=== PATIENT | male | born 1975 | race Caucasian/White ===

== ENCOUNTER 2016-12-19 20:51 | Emergency (ER) | payer SELFPAY ==
[2016-12-19 21:00] VITALS: BP 156/95
[2016-12-19] MEDS ORDERED: LIDOCAINE 2% VISCOUS SOLN 20 ML UDCUP PO ONE (21:26)
--- NOTE | 2016-12-19 21:27 | ER Document Report ---
HPI - HPI Pain Level: 5 Notes: Patient is a 41-year-old male who presents to the ED complaining of left lower dental pain to #18 2-3 days. Patient states that he has not noticed any abscess or discharge to the area. Patient states that that tooth is fractured and bothers him from time to time. Patient has been using [id number] meds with minimal relief. The pain does not radiate. Patient is still able to eat and drink without any difficulties. Patient has a drug allergy to sulfa, but denies any other significant past medical history. Patient denies any smoking or illicit drug use. Denies any headache, fever, neck pain/stiffness, URI, sore throat, drooling, hoarseness, chest pain, palpitations, syncope, cough , shortness of breath, wheeze, dyspnea, abdominal pain, nausea/vomiting/diarrhea , or rash. - ROS Notes: REVIEW OF SYSTEMS: CONSTITUTIONAL : Denies fever, chills, or sweats. Denies recent illness. EENT: see hpi. CARDIOVASCULAR: Denies chest pain. Denies palpitations or racing or irregular heart beat. Denies ankle edema. RESPIRATORY: Denies cough, cold, or chest congestion. Denies shortness of breath, difficulty breathing, or wheezing. GASTROINTESTINAL: Denies abdominal pain or distention. Denies nausea, vomiting , or diarrhea. Denies blood in vomitus, stools, or per rectum. Denies black, tarry stools. Denies constipation. GENITOURINARY: Denies difficulty urinating, painful urination, burning, frequency, blood in urine, or discharge. MUSCULOSKELETAL: Denies back or neck pain or stiffness. Denies joint pain or swelling. SKIN: Denies rash, lesions or sores. NEUROLOGICAL: Denies confusion or altered mental status. Denies passing out or loss of consciousness. Denies dizziness or lightheadedness. Denies headache. Denies weakness or paralysis or loss of use of either side. Denies problems with gait or speech. Denies sensory loss, numbness, or tingling. ALL OTHER SYSTEMS REVIEWED AND NEGATIVE. Dictation was performed using [employer] voice recognition software - REPRODUCTIVE Reproductive: DENIES: : - DERM Skin Color: Normal Past Medical History - Social History Smoking Status: Never Smoker Family History: None Patient has suicidal ideation: No Patient has homicidal ideation: No Renal/ Medical History: Denies: Hx Peritoneal Dialysis Musculoskeltal Medical History: Reports Hx Musculoskeletal Deformity, Reports Hx Musculoskeletal Trauma Skin Medical History: Reports Hx MRSA Infectious Medical History: Reports: Hx MRSA Past Surgical History: Reports: Hx Orthopedic Surgery - cervical fusion x 3,, Hx Tonsillectomy - Immunizations Hx Diphtheria, Pertussis, Tetanus Vaccination: Yes Vertical Provider Document - CONSTITUTIONAL Agree With Documented VS: Yes Notes: PHYSICAL EXAMINATION: GENERAL: Well-appearing, well-nourished and in no acute distress. HEAD: Atraumatic, normocephalic. EYES: Pupils equal round and reactive to light, extraocular movements intact, sclera anicteric, conjunctiva are normal. ENT: EAC clear b/l. TM's intact b/l without erythema, fluid, or perforation. Nares patent and without discharge. oropharynx clear without exudates. No tonsilar hypertrophy or erythema. Moist mucous membranes. No sinus tenderness. Uvula midline. No palatine shift. No tongue protrusion. No respiratory compromise. No facial swelling. Mouth: Poor dentition. + decay and mild gingivitis to #18. Multiple missing teeth noted. No obvious abscess or discharge noted. No facial swelling. + tenderness to tooth #18. NECK: Normal range of motion, supple without lymphadenopathy. No rigidity/ meningismus. LUNGS: Breath sounds clear to auscultation bilaterally and equal. No wheezes rales or rhonchi. HEART: Regular rate and rhythm without murmurs, rubs, gallops. NEUROLOGICAL: Cranial nerves grossly intact. Normal speech, normal gait. Normal sensory, motor exams PSYCH: Normal mood, normal affect. SKIN: Warm, Dry, normal turgor, no rashes or lesions noted. - INFECTION CONTROL TRAVEL OUTSIDE OF THE [place] IN LAST 30 DAYS: No - RESPIRATORY O2 Sat by Pulse Oximetry: 98 Course - Re-evaluation Re-evalutation: 12/19/16 21:39 Patient is an afebrile, well-hydrated, 41-year-old male who presents the ED complaining of a #18, nerve root etiology versus possible mild infection. Vitals are stable. PE otherwise unremarkable at this time. Offered patient a dental block who agreed, but then declined when the procedure was about to begin. I will send him home with viscous lidocaine and a syringe that he may utilize in small amounts to the tooth for pain as needed. I will also send him home with a prescription for penicillin to take as directed. Low suspicion for any meningitis, sepsis, peritonsillar/pharyngeal abscess, respiratory compromise , Nigel's, temporal arteritis, or other emergent systemic condition at this time. Patient is aware this condition can change from initial presentation and he needs to monitor symptoms closely. Conservative measures otherwise for symptoms. Call to schedule an appointment with a dentist for further evaluation and management. Recheck with your PCM this week as well. Return to the ED with any worsening/concerning symptoms otherwise as reviewed in discharge. Patient is in agreement. - Vital Signs Vital signs: Temp Pulse Resp BP Pulse Ox 98.1 F 78 18 156/95 H 98 12/19/16 20:58 12/19/16 20:58 12/19/16 20:58 12/19/16 20:58 12/19/16 20:58 Discharge - Discharge Clinical Impression: Toothache Condition: Stable Disposition: HOME, SELF-CARE Instructions: [facility], Dentist, Penicillin V K ([facility]), Toothache ([facility]) Additional Instructions: Shirley and floss twice daily Maintain fluid intake Take antibiotics as directed Mouthwash, salt water gargles, peroxide rinse as needed Tylenol/ibuprofen as needed Recheck with PCM this week Call today/tomorrow and schedule an appointment with your dentist for further evaluation Return to the ED with any worsening symptoms and/or development of fever, headache, facial swelling, swelling of lips/tongue/throat, trouble swallowing, drooling, hoarseness, neck pain/stiffness, chest pain, palpitations, syncope, shortness of breath, trouble breathing, abdominal pain, n/v/d, numbness/tingling , or other worsening symptoms that are concerning to you. Prescriptions: Penicillin V Potassium [Penicillin Vk 500 mg Tablet] 500 mg PO BID #20 tablet Forms: Elevated Blood Pressure Referrals: [facility] [Provider Group] - Follow up as needed
== END 2016-12-19 21:42 | disposition home or self-care (01) ==
LOC: ER 20:51
DX: K08.89 Other specified disorders of teeth and supporting structures (principal)
CPT/HCPCS: 99282

== ENCOUNTER 2017-01-02 19:19 | Emergency (ER) | payer OTHER ==
[2017-01-02] MEDS ORDERED: ONDANSETRON HCL INJ/PF 4 MG/2 ML SDV IV ONE (19:54)
[2017-01-02] MEDS ORDERED: NORMAL SALINE 1000 ML 1,000 ML IV ONE (19:54)
[2017-01-02] MEDS ORDERED: KETOROLAC TROMETHAMINE INJ/PF 30 MG/1 ML SDV IV ONE (19:54)
--- NOTE | 2017-01-02 19:56 | ER Document Report ---
ED Medical Screen (RME) - General Chief Complaint: Urinary Problem Stated Complaint: ABDOMINAL PAIN Time Seen by Provider: 01/02/17 19:53 Mode of Arrival: Wheelchair Information source: Patient, Friend TRAVEL OUTSIDE OF THE [place] IN LAST 30 DAYS: No - HPI Patient complains to provider of: L flank pain Onset: This morning - pt with h/o kidney stones with onset of L flank pain earlier today with vomiting times 2 - Related Data Allergies/Adverse Reactions: Sulfa (Sulfonamide Antibiotics) Allergy (Verified 12/19/16 20:57) Past Medical History - Social History Chew tobacco use (# tins/day): No Frequency of alcohol use: None Drug Abuse: None Renal/ Medical History: Denies: Hx Peritoneal Dialysis Musculoskeltal Medical History: Reports Hx Musculoskeletal Deformity, Reports Hx Musculoskeletal Trauma Skin Medical History: Reports Hx MRSA Infectious Medical History: Reports: Hx MRSA Past Surgical History: Reports: Hx Orthopedic Surgery - cervical fusion x 3,, Hx Tonsillectomy - Immunizations Hx Diphtheria, Pertussis, Tetanus Vaccination: Yes Physical Exam - Vital signs Vitals: Temp Pulse BP Pulse Ox 97.9 F 104 H 145/100 H 89 L 01/02/17 19:39 01/02/17 19:39 01/02/17 19:39 01/02/17 19:39 Course - Vital Signs Vital signs: Temp Pulse Resp BP Pulse Ox 97.9 F 104 H 145/100 H 89 L 01/02/17 19:39 01/02/17 19:39 01/02/17 19:39 01/02/17 19:39
[2017-01-02 20:22] LABS: APPEARANCE,URINE SLIGHTLY-CLOUDY; BILIRUBIN,URINE NEGATIVE (NEGATIVE); GLUCOSE, URINE NEGATIVE (NEGATIVE); KETONES,URINE NEGATIVE (NEGATIVE); LEUKOCYTE ESTERASE,URINE NEGATIVE (NEGATIVE); NITRITE,URINE NEGATIVE (NEGATIVE); PROTEIN,URINE 30 mg/dL (NEGATIVE); URINE SPECIFIC GRAVITY 1.016; UROBILINOGEN,URINE NEGATIVE mg/dL (<2.0)
--- NOTE | 2017-01-02 20:50 | RADIOLOGY REPORT (SQ) ---
EXAM DESCRIPTION: CT LTD RENAL STONE PROTOCOL ON COMPLETED DATE/TIME: 01/02/2017 8:38 pm REASON FOR STUDY: L flank pain COMPARISON: None. TECHNIQUE: CT scan of the abdomen and pelvis performed without intravenous or oral contrast. Images reviewed with lung, soft tissue, and bone windows. Reconstructed coronal and sagittal MPR images revi ewed. All images stored on PACS. All CT scanners at this facility use dose modulation, iterative reconstruction, and/or weight based d osing when appropriate to reduce radiation dose to as low as reasonably achievable (ALARA). [facility]: Dose Right [facility]: CareDose [facility]: Dose Right [facility]: Teradose 4D [facility]: Smart [employer] RADIATION DOSE: Up-to-date CT equipment and radiation dose reduction techniques were employed. CTDIv ol: 7.5 mGy. DLP: 414 mGy-cm.mGy. LIMITATIONS: None. FINDINGS: LOWER CHEST: No significant findings. No nodules or infiltrates. NON-CONTRASTED LIVER, SPLEEN, ADRENALS: Evaluation limited by lack of IV contrast. No identified sign ificant masses. PANCREAS: No masses. No peripancreatic inflammatory changes. GALLBLADDER: No identified stones by CT criteria. No inflammatory changes to suggest cholecystitis. RIGHT KIDNEY AND URETER: No suspicious masses. Assessment limited by lack of IV contrast. No signif icant calcifications. No hydronephrosis or hydroureter. LEFT KIDNEY AND URETER: No suspicious masses. Assessment limited by lack of IV contrast. No signifi cant calcifications. No hydronephrosis or hydroureter. AORTA AND RETROPERITONEUM: No aneurysm. No retroperitoneal masses or adenopathy. BOWEL AND PERITONEAL CAVITY: No obvious masses or inflammatory changes. No free fluid. APPENDIX: Normal. PELVIS, BLADDER, AND ABDOMINAL WALL:There is an umbilical hernia containing omental fat only. BONES: No significant findings. OTHER: No other significant finding. IMPRESSION: NO SIGNIFICANT OR ACUTE PROCESS IN THE ABDOMEN OR PELVIS. COMMENT: Quality ID # [id number]: Final reports with documentation of one or more dose reduction techniques (e.g., Automated exposure control, adjustment of the mA and/or kV according to patient size, use of iterative reconstruction technique) TECHNICAL DOCUMENTATION: JOB ID: [id number]- All Rights Reserved
[2017-01-02] MEDS ORDERED: MORPHINE SULFATE 10 MG/ML INJ IV ONE ×2 (21:30→21:55)
--- NOTE | 2017-01-02 22:06 | ER Document Report ---
ED General - General Chief Complaint: Urinary Problem Stated Complaint: ABDOMINAL PAIN Time Seen by Provider: 01/02/17 19:53 Mode of Arrival: Wheelchair Notes: Patient is a 41-year-old male with a past medical history of prior kidney stones who presents with 4 hours of a dull, constant, aching pain to the left flank that radiates into the left lower abdomen and left testicle. He states this is a severe pain similar to when he had kidney stones in the past. Nothing improves or worsens the pain. He notes associated nausea, vomiting and hematuria. No chest pain or shortness of breath. He has not seen his primary doctor regarding this concern. He came directly to the emergency department due to the severity of the pain. TRAVEL OUTSIDE OF THE [place] IN LAST 30 DAYS: No - Related Data Allergies/Adverse Reactions: Sulfa (Sulfonamide Antibiotics) Allergy (Verified 12/19/16 20:57) Past Medical History - General Information source: Patient, Friend - Social History Smoking Status: Never Smoker Chew tobacco use (# tins/day): No Frequency of alcohol use: None Drug Abuse: None Lives with: Spouse/Significant other Family History: Reviewed & Not Pertinent Patient has suicidal ideation: No Patient has homicidal ideation: No Renal/ Medical History: Denies: Hx Peritoneal Dialysis Musculoskeltal Medical History: Reports Hx Musculoskeletal Deformity, Reports Hx Musculoskeletal Trauma Skin Medical History: Reports Hx MRSA Infectious Medical History: Reports: Hx MRSA Past Surgical History: Reports: Hx Orthopedic Surgery - cervical fusion x 3,, Hx Tonsillectomy - Immunizations Hx Diphtheria, Pertussis, Tetanus Vaccination: Yes Review of Systems - Review of Systems Notes: Constitutional: Negative for fever. HENT: Negative for sore throat. Eyes: Negative for visual changes. Cardiovascular: Negative for chest pain. Respiratory: Negative for shortness of breath. Gastrointestinal: Positive for flank pain and vomiting Genitourinary: Positive for hematuria Musculoskeletal: Negative for back pain. Skin: Negative for rash. Neurological: Negative for headaches, weakness or numbness. 10 point ROS negative except as marked above and in HPI. Physical Exam - Vital signs Vitals: Temp Pulse BP Pulse Ox 97.9 F 104 H 145/100 H 89 L 01/02/17 19:39 01/02/17 19:39 01/02/17 19:39 01/02/17 19:39 The documented pulse oximetry is incorrect. Patient was never hypoxic Notes: PHYSICAL EXAMINATION: GENERAL: Appears uncomfortable, holding his left flank HEAD: Atraumatic, normocephalic. EYES: Pupils equal round and reactive to light, extraocular movements intact, sclera anicteric, conjunctiva are normal. ENT: nares patent, oropharynx clear without exudates. Moist mucous membranes. NECK: Normal range of motion, supple without lymphadenopathy LUNGS: Breath sounds clear to auscultation bilaterally and equal. No wheezes rales or rhonchi. HEART: Regular rate and rhythm without murmurs ABDOMEN: Soft, nontender, left CVA tenderness. No rebound or guarding. : No focal testicular tenderness, positive cremasteric reflex bilaterally. No penile lesions EXTREMITIES: Normal range of motion, no pitting or edema. No cyanosis. NEUROLOGICAL: No focal neurological deficits. Moves all extremities spontaneously and on command. PSYCH: Normal mood, normal affect. SKIN: Warm, Dry, normal turgor, no rashes or lesions noted. Course - Re-evaluation Re-evalutation: 01/02/17 22:06 Presents with findings consistent with acute nephrolithiasis. Urinalysis does show hematuria. Laboratory otherwise unremarkable. CT obtained in triage does not demonstrate any evidence of acute nephrolithiasis and the patient reports seeing what appeared to be grounds and in his urine here today and I suspect he may be having very small stones causing his symptoms. Pain was able to be controlled here in the emergency department. Patient is tolerating oral intake. Clinical history is not consistent with an acute abdominal aneurysm or dissection, ID, or pulmonary embolus. Urinalysis does not show findings consistent with an infected stone. Vitals have remained within normal limits. Patient will be discharged with recommendations to follow-up with urology, pain medications, and return precautions. They are in agreement with this plan and verbalized indications return to emergency department. - Vital Signs Vital signs: Temp Pulse Resp BP Pulse Ox 97.9 F 86 18 123/95 H 98 01/02/17 19:39 01/02/17 21:51 01/02/17 23:14 01/02/17 23:14 01/02/17 23:14 - Laboratory Laboratory results interpreted by me: 01/02/17 19:56 Urine Protein 30 H Urine Blood LARGE H Urine Ascorbic Acid 40 H - Diagnostic Test Radiology reviewed: Reports reviewed Discharge - Discharge Clinical Impression: Nephrolithiasis Condition: Good Disposition: HOME, SELF-CARE Additional Instructions: Your symptoms should improve over the course of the next one week. If you continue to have pain for greater than one week or your pain is not controlled with the pain medications that you have been sent home with you need to return to the emergency department. Please also return if you develop fever, persistent vomiting, or any other symptoms that are concerning to you. You should take ibuprofen 600 mg every 6 hours and use the norco as prescribed only for pain not controlled by ibuprofen. Your also been sent home with a medication called Flomax to help pass the stone. You've been given Zofran to assist with nausea. Please followup closely with your primary care provider. Prescriptions: Tamsulosin HCl [Flomax 0.4 mg Cap.sr] 0.4 mg PO DAILY #7 cap.sr.24h Forms: Return to Work
[2017-01-02] MEDS ORDERED: HYDROMORPHONE HCL INJ/PF 2 MG/ML AMPULE IV ONE (22:26)
[2017-01-02] MEDS ORDERED: HYDROCODONE/ACETAMINOPHEN 5-325 MG 6 TAB/DSPK PO PRN (22:54)
[2017-01-02] MEDS ORDERED: ONDANSETRON ODT 4 MG TAB (6 TAB/DSPK) PO PRN (22:54)
[2017-01-02 23:22] VITALS: BP 123/95
== END 2017-01-02 23:22 | disposition home or self-care (01) ==
LOC: ER 19:19
DX: N20.0 Calculus of kidney (principal); R10.32 Left lower quadrant pain; R11.2 Nausea with vomiting, unspecified; Z88.2 Allergy status to sulfonamides; Z87.442 Personal history of urinary calculi; Z86.14 Personal history of Methicillin resistant Staphylococcus aureus infection; Z98.1 Arthrodesis status
CPT/HCPCS: 99284; 96361; 96374; 96375; 81001; 76380; J1885; J2270; J1170; J2405; J7030

== ENCOUNTER 2017-01-03 20:03 | Emergency (ER) | payer OTHER ==
[2017-01-03] MEDS ORDERED: NORMAL SALINE 1000 ML 1,000 ML IV PRN (20:33)
[2017-01-03] MEDS ORDERED: KETOROLAC TROMETHAMINE INJ/PF 30 MG/1 ML SDV IV ONE (20:33)
[2017-01-03] MEDS ORDERED: ONDANSETRON HCL INJ/PF 4 MG/2 ML SDV IV ONE (20:33)
--- NOTE | 2017-01-03 20:35 | ER Document Report ---
ED Medical Screen (RME) - General Chief Complaint: Flank Pain Stated Complaint: ABDOMINAL AND BACK PAIN Time Seen by Provider: 01/03/17 20:21 Mode of Arrival: Wheelchair Information source: Patient TRAVEL OUTSIDE OF THE [place] IN LAST 30 DAYS: No - HPI Patient complains to provider of: Left flank pain with hematuria, nausea and vomiting Notes: 01/03/17 20:34 41-year-old male presents to the emergency room complaining of left-sided flank pain with hematuria, nausea and vomiting, patient has a history of kidney stones previously, he was seen in the emergency room yesterday for these complaints, had a CT scan and a urinalysis performed, CT scan did not show any kidney stones but urinalysis had hematuria, he was therefore treated for kidney stone, however he reports that his pain is worsened throughout the day today - Related Data Allergies/Adverse Reactions: Sulfa (Sulfonamide Antibiotics) Allergy (Verified 01/03/17 20:16) Past Medical History Renal/ Medical History: Denies: Hx Peritoneal Dialysis Musculoskeltal Medical History: Reports Hx Musculoskeletal Deformity, Reports Hx Musculoskeletal Trauma Skin Medical History: Reports Hx MRSA Infectious Medical History: Reports: Hx MRSA Past Surgical History: Reports: Hx Orthopedic Surgery - cervical fusion x 3,, Hx Tonsillectomy - Immunizations Hx Diphtheria, Pertussis, Tetanus Vaccination: Yes Physical Exam - Vital signs Vitals: Temp Pulse Resp BP Pulse Ox 98.0 F 109 H 20 134/93 H 97 01/03/17 20:16 01/03/17 20:16 01/03/17 20:16 01/03/17 20:16 01/03/17 20:16 Course - Vital Signs Vital signs: Temp Pulse Resp BP Pulse Ox 98.0 F 109 H 20 134/93 H 97 01/03/17 20:16 01/03/17 20:16 01/03/17 20:16 01/03/17 20:16 01/03/17 20:16
[2017-01-03 20:53] LABS: APPEARANCE,URINE SLIGHTLY-CLOUDY; BILIRUBIN,URINE NEGATIVE (NEGATIVE); GLUCOSE, URINE NEGATIVE (NEGATIVE); KETONES,URINE NEGATIVE (NEGATIVE); LEUKOCYTE ESTERASE,URINE NEGATIVE (NEGATIVE); NITRITE,URINE NEGATIVE (NEGATIVE); PROTEIN,URINE 30 mg/dL (NEGATIVE); URINE SPECIFIC GRAVITY 1.033
[2017-01-03 21:17] LABS: ABSOLUTE BASOPHILS # (AUTO) 0.1 10^3/uL (0.0-0.2); ABSOLUTE EOSINOPHILS # (AUTO) 0.2 10^3/uL (0.0-0.6); ABSOLUTE LYMPHOCYTES (AUTO) 4.3 10^3/uL (0.5-4.7); ABSOLUTE MONOCYTES (AUTO) 0.5 10^3/uL (0.1-1.4); ABSOLUTE NEUT (AUTO) 3.7 10^3/uL (1.7-8.2); BASOPHILS % (AUTO) 0.8 % (0-2); EOSINOPHILS % (AUTO) 2.1 % (0-6); HEMATOCRIT 38.2 % (37.9-51.0); HEMOGLOBIN 13.8 g/dL (13.5-17.0); HGB HCT DIFFERENCE 3.2; LYMPHOCYTES % (AUTO) 49.1 % (13-45); MEAN CORPUSCULAR HEMOGLOBIN 32.2 pg (27.0-33.4); MEAN CORPUSCULAR HGB CONC 36.2 g/dL (32.0-36.0); MEAN CORPUSCULAR VOLUME 89 fl (80-97); MONOCYTES % (AUTO) 5.7 % (3-13); RED CELL DISTRIBUTION WIDTH 13.6 % (11.5-14.0); SEGMENTED NEUTROPHILS % (AUTO) 42.3 % (42-78); WHITE BLOOD COUNT 8.7 10^3/uL (4.0-10.5)
[2017-01-03 21:35] LABS: ALANINE AMINOTRANSFERASE 65 U/L (21-72); ALKALINE PHOSPHATASE 78 U/L (38-126); ANION GAP 8 (5-19); ASPARTATE AMINO TRANSFERASE 36 U/L (17-59); BILIRUBIN,DIRECT 0.4 mg/dL (0.0-0.4); BLOOD UREA NITROGEN 7 mg/dL (7-20); CALCIUM 9.8 mg/dL (8.4-10.2); CARBON DIOXIDE 30 mmol/L (22-30); CHLORIDE 106 mmol/L (98-107); CREATININE RESULT 0.82 mg/dL (0.52-1.25); GLUCOSE 80 mg/dL (75-110); LIPASE 67.2 U/L (23-300); SODIUM 144.2 mmol/L (137-145); TOTAL PROTEIN 6.8 g/dL (6.3-8.2)
[2017-01-03] MEDS ORDERED: MORPHINE SULFATE 10 MG/ML INJ IV ONE (22:17)
[2017-01-03] MEDS ORDERED: PROMETHAZINE HCL INJ 25 MG/1 ML VIAL IV ONE (22:17)
--- NOTE | 2017-01-03 22:21 | ER Document Report ---
ED GI/ - General Chief Complaint: Flank Pain Stated Complaint: ABDOMINAL AND BACK PAIN Time Seen by Provider: 01/03/17 20:21 Mode of Arrival: Wheelchair Notes: 41-year-old male history of kidney stones presents with severe left flank abdominal and generalized testicle discomfort. He was seen yesterday for similar and had hematuria but a negative CT except for a small umbilical hernia. His pain had improved a little bit became very severe having continued hematuria. No other changes otherwise. Pain has been severe has made him somewhat dizzy. He also has had a little bit of loose stool but no blood in his stool. Denies trauma. No fever. Reports nausea and occasional vomiting as well. TRAVEL OUTSIDE OF THE [place] IN LAST 30 DAYS: No - Related Data Allergies/Adverse Reactions: Sulfa (Sulfonamide Antibiotics) Allergy (Verified 01/03/17 20:16) Past Medical History - General Information source: Patient - Social History Smoking Status: Unknown if Ever Smoked Family History: Reviewed & Not Pertinent Renal/ Medical History: Denies: Hx Peritoneal Dialysis Musculoskeltal Medical History: Reports Hx Musculoskeletal Deformity, Reports Hx Musculoskeletal Trauma Skin Medical History: Reports Hx MRSA Infectious Medical History: Reports: Hx MRSA Past Surgical History: Reports: Hx Orthopedic Surgery - cervical fusion x 3,, Hx Tonsillectomy - Immunizations Hx Diphtheria, Pertussis, Tetanus Vaccination: Yes Review of Systems - Review of Systems -: Yes All other systems reviewed and negative Physical Exam - Vital signs Vitals: Temp Pulse Resp BP Pulse Ox 98.0 F 109 H 20 134/93 H 97 01/03/17 20:16 01/03/17 20:16 01/03/17 20:16 01/03/17 20:16 01/03/17 20:16 - Notes Notes: GENERAL: VS as per nursing doc. Well-appearing, well-nourished and appears uncomfortable. HEAD: Atraumatic, normocephalic. EYES: Pupils equal round and reactive to light, extraocular movements intact, sclera anicteric, no conjunctival injection or discharge. ENT: Nares patent, oropharynx clear without exudates, moist mucous membranes. NECK: Normal range of motion, supple without lymphadenopathy. LUNGS: Breath sounds clear to auscultation bilaterally and equal. No wheezes rales or rhonchi. HEART: Regular rate and rhythm without murmurs. ABDOMEN: Soft, non-tender, normoactive bowel sounds. No guarding, no rebound. No masses appreciated. No Marshall sign. BACK: Mild left CVA tenderness. : No evidence of inguinal hernia. No mass. No testicular tenderness or gross abnormality. EXTREMITIES: Normal range of motion, no calf tenderness, no edema. NEUROLOGICAL: Cranial nerves grossly intact. Normal speech. Normal sensory and motor exams. No gross cerebellar abnormalities. PSYCH: Normal mood, normal affect. SKIN: Warm, dry, normal turgor, no lesions noted. Course - Re-evaluation Re-evalutation: 01/04/17 00:07 Patient was reevaluated. There is no clear cause for his discomfort at this point. I reviewed the CT as well as the ultrasound with him. Offered him a CT with IV contrast with radiation risks to evaluate to ensure no other abnormality. I discussed with him I thought this would probably fairly low yield. He deferred this requesting urology follow-up. He will get this follow- up on Friday or at least call for it. I will try to get him some relief until then with medication. I discussed narcotics with him and risk of addiction, side effects. He voices understanding of this. With the hematuria, suspect he will at least need cystoscopy. - Vital Signs Vital signs: Temp Pulse Resp BP Pulse Ox 98.0 F 109 H 20 134/93 H 97 01/03/17 20:16 01/03/17 20:16 01/03/17 20:16 01/03/17 20:16 01/03/17 20:16 - Laboratory Result Diagrams: 01/03/17 21:00 01/03/17 21:00 Laboratory results interpreted by me: 01/03/17 01/03/17 20:15 21:00 RBC 4.30 L MCHC 36.2 H Lymphocytes % 49.1 H Urine Protein 30 H Urine Blood LARGE H Urine Urobilinogen 2.0 H Urine Ascorbic Acid 40 H - Diagnostic Test Radiology reviewed: Image reviewed, Reports reviewed - No hydronephrosis or bladder abnormality noted Discharge - Discharge Clinical Impression: Hematuria, Flank pain, Abdominal pain Condition: Good Instructions: Oral Narcotic Medication ([facility]), Pain Medication Injection ([facility]), Toradol Injection ([facility]) Additional Instructions: Please contact the urologist first thing in the morning. Return for fever or emergency. Ensure you stay hydrated with non-caffeinated fluids. Start initially with ibuprofen or Aleve for discomfort. Prescriptions: Hydrocodone/Acetaminophen [Lee 5-325 mg Tablet] 1 tab PO Q4HP PRN #14 tablet PRN Reason: For Pain Promethazine HCl [Phenergan 25 mg Tablet] 1 tab PO Q4HP PRN #10 tablet PRN Reason: Referrals: [facility] [Provider Group] - 01/06/17
--- NOTE | 2017-01-03 22:57 | RADIOLOGY REPORT (SQ) ---
EXAM DESCRIPTION: U/S RETROPERITON (RENAL/AORTA) COMPLETED DATE/TIME: 01/03/2017 10:37 pm REASON FOR STUDY: left flank pain COMPARISON: None. TECHNIQUE: Dynamic and static grayscale images acquired of the kidneys and bladder and recorded on P ACS. Additional selected color Doppler and spectral images recorded. LIMITATIONS: None. FINDINGS: RIGHT KIDNEY: Normal size. Normal echogenicity. No solid or suspicious masses. No hydronep hrosis. No calcifications. LEFT KIDNEY: Normal size. Normal echogenicity. No solid or suspicious masses. No hydronephrosis. No calcifications. BLADDER: No masses. OTHER FINDINGS: No other significant finding. IMPRESSION: NORMAL RENAL AND BLADDER ULTRASOUND. TECHNICAL DOCUMENTATION: JOB ID: [id number] [employer]- All Rights Reserved
[2017-01-04 00:23] VITALS: BP 122/73
== END 2017-01-04 00:23 | disposition home or self-care (01) ==
LOC: ER 20:03
DX: R31.9 Hematuria, unspecified (principal); R10.9 Unspecified abdominal pain; M54.9 Dorsalgia, unspecified; N50.812 Left testicular pain; R42 Dizziness and giddiness; R19.7 Diarrhea, unspecified; R11.2 Nausea with vomiting, unspecified
CPT/HCPCS: 99284; 96374; 96375; 36415; 83690; 85025; 80053; 81001; 76770; J1885; J2270; J2550; J2405; J7030

== ENCOUNTER 2017-01-07 12:53 | Emergency (ER) | payer OTHER ==
[2017-01-07] MEDS ORDERED: HYDROCODONE/ACETAMINOPHEN 5-325 MG TABLET PO ONE (14:15)
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
[2017-01-07] MEDS ORDERED: KETOROLAC TROMETHAMINE 60 MG/2 ML SDV IM ONE (18:10)
[2017-01-07] MEDS ORDERED: LIDOCAINE 5% (700 MG) TRANSDERMAL ADH..PATCH TP ONE (18:10)
--- NOTE | 2017-01-07 18:37 | RADIOLOGY REPORT (SQ) ---
EXAM DESCRIPTION: MRI CERVICAL SPINE WITHOUT COMPLETED DATE/TIME: 01/07/2017 6:02 pm REASON FOR STUDY: neck injury,L hand numbness, hx fusion COMPARISON: CT of the cervical spine dated 01/07/2007 TECHNIQUE: Sagittal and Axial imaging includes T1, T2, STIR and gradient echo sequences. LIMITATIONS: None. FINDINGS: ALIGNMENT: There is loss of the normal cervical lordosis. VERTEBRAE: The previously described extensive postsurgical changes with multilevel anterior cervical fusions are again identified. BONE MARROW: Normal. No marrow replacement or reactive changes. DISCS: A degree of disc degeneration is identified with some loss of the disc space heights inferiorl y. This correlates with the CT findings. HARDWARE: The previously described orthopedic hardware is again identified. CORD AND BASE OF BRAIN: There is focal abnormal marrow signal within the cervical spinal cord at the C6 level which would suggest cord edema presumably posttraumatic in nature. I cannot exclude an asso ciated hemorrhagic component. SOFT TISSUES: No soft tissue masses. C1-C2: No significant spinal stenosis. C2-C3: No significant spinal stenosis or exit foraminal stenosis. A small focal central disc protrus ion is identified with an associated annular tear. C3-C4: No significant spinal stenosis or exit foraminal stenosis. C4-C5: No significant spinal stenosis or exit foraminal stenosis. C5-C6: No significant spinal stenosis or exit foraminal stenosis. C6-C7: No significant spinal stenosis or exit foraminal stenosis. C7-T1: No significant spinal stenosis or exit foraminal stenosis. UPPER THORACIC: Incompletely imaged. No significant spinal stenosis or exit foraminal stenosis. OTHER: No other significant finding. IMPRESSION: There is focal abnormal marrow signal within the cervical spinal cord at the C6 level as noted above which would suggest cord edema presumably posttraumatic in nature. I cannot exclude an associated hemorrhagic component. The previously described extensive postsurgical changes are again identified which correlates with the CT findings. No abnormal marrow signal is seen to suggest an ac benjie process. Other findings as noted above TECHNICAL DOCUMENTATION: JOB ID: [id number]- All Rights Reserved
[2017-01-07] MEDS ORDERED: OXYCODONE-ACETAMINOPHEN 5-325 MG TABLET PO ONE (19:30)
[2017-01-07 21:15] VITALS: BP 124/93
== END 2017-01-07 20:50 | disposition home or self-care (01) ==
LOC: ER 12:53
DX: M54.12 Radiculopathy, cervical region (principal); M54.2 Cervicalgia; M54.5 Low back pain; R53.1 Weakness; Z86.14 Personal history of Methicillin resistant Staphylococcus aureus infection; Z98.1 Arthrodesis status; Z88.2 Allergy status to sulfonamides
CPT/HCPCS: 99284; 96372; 72141; 72110; 72125; L0172; J1885

== ENCOUNTER 2017-01-09 14:36 | Emergency (ER) | payer OTHER ==
[2017-01-09 15:13] VITALS: BP 134/114
--- NOTE | 2017-01-09 16:02 | ER Document Report ---
ED Neck/Back Problem - General Chief Complaint: Neck Pain >24hrs old Stated Complaint: NECK PAIN Time Seen by Provider: 01/09/17 15:53 Mode of Arrival: Ambulatory Information source: Patient Notes: Patient was seen here 2 days ago please see that note. Patient states he is returning today because the pain is bad and he is unable to sleep. He states he only has a few Percocet left. He asks if I can increase the dosage to 10 mg Percocets. Patient states he is having pain in his neck reveals down his left arm as well as pain in the right buttock that goes down his right leg. They are constant and severe. They are worse with movement and better with rest. He denies any new injury since he was discharged in the emergency department 2 days ago. He states he is also been taking Motrin for pain. TRAVEL OUTSIDE OF THE [place] IN LAST 30 DAYS: No - Related Data Allergies/Adverse Reactions: Sulfa (Sulfonamide Antibiotics) Allergy (Verified 01/07/17 13:05) Past Medical History - General Information source: Patient - Social History Smoking Status: Former Smoker Chew tobacco use (# tins/day): No Frequency of alcohol use: Occasional Drug Abuse: None Family History: Reviewed & Not Pertinent Patient has suicidal ideation: No Patient has homicidal ideation: No Renal/ Medical History: Denies: Hx Peritoneal Dialysis Musculoskeltal Medical History: Reports Hx Musculoskeletal Deformity, Reports Hx Musculoskeletal Trauma Skin Medical History: Reports Hx MRSA Infectious Medical History: Reports: Hx MRSA Past Surgical History: Reports: Hx Orthopedic Surgery - cervical fusion x 4,, Hx Tonsillectomy - Immunizations Hx Diphtheria, Pertussis, Tetanus Vaccination: Yes Review of Systems - Review of Systems Constitutional: denies: Chills, Fever Cardiovascular: denies: Chest pain, Palpitations Respiratory: denies: Cough, Short of breath Gastrointestinal: denies: Diarrhea, Vomiting Physical Exam - Vital signs Vitals: Temp Pulse Resp BP Pulse Ox 98.5 F 70 20 134/114 H 98 01/09/17 15:10 01/09/17 15:10 01/09/17 15:10 01/09/17 15:10 01/09/17 15:10 Interpretation: Hypertensive - General General appearance: Appears well, Alert - Respiratory Respiratory status: No respiratory distress Chest status: Nontender Breath sounds: Normal Chest palpation: Normal - Cardiovascular Rhythm: Regular Heart sounds: Normal auscultation Murmur: No - Neurological Neuro grossly intact: Yes Cognition: Normal Orientation: AAOx4 [place] Coma Scale Eye Opening: Spontaneous [place] Coma Scale Verbal: Oriented [place] Coma Scale Motor: Obeys Commands [place] Coma Scale Total: 15 Speech: Normal - Psychological Associated symptoms: Normal affect, Normal mood - Skin Skin Temperature: Warm Skin Moisture: Dry Skin Color: Normal Course - Vital Signs Vital signs: Temp Pulse Resp BP Pulse Ox 98.5 F 70 20 134/114 H 98 01/09/17 15:10 01/09/17 15:10 01/09/17 15:10 01/09/17 15:10 01/09/17 15:10 Discharge - Discharge Clinical Impression: Acute lumbar myofascial strain, Cervical pain (neck) Condition: Stable Disposition: HOME, SELF-CARE Instructions: Low Back Pain ([facility]), Neck Injury (Cervical Strain) ([facility]) Additional Instructions: Please follow-up with your neurosurgeon as directed Prescriptions: Piroxicam [Feldene] 10 mg PO DAILY PRN #12 capsule PRN Reason: Forms: Elevated Blood Pressure
== END 2017-01-09 16:30 | disposition home or self-care (01) ==
LOC: ER 14:36
DX: S39.012A Strain of muscle, fascia and tendon of lower back, initial encounter (principal); M54.2 Cervicalgia; W16.122A Fall into natural body of water striking bottom causing other injury, initial encounter; Y93.11 Activity, swimming; Y92.832 Beach as the place of occurrence of the external cause; Z87.891 Personal history of nicotine dependence; Z86.14 Personal history of Methicillin resistant Staphylococcus aureus infection; Z98.1 Arthrodesis status
CPT/HCPCS: 99283

== ENCOUNTER 2017-01-19 00:29 | Emergency (ER) | payer OTHER ==
--- NOTE | 2017-01-19 01:49 | ER Document Report ---
ED Neck/Back Problem - General Chief Complaint: Neck Injury Stated Complaint: NECK AND BACK PAIN Time Seen by Provider: 01/19/17 01:05 Notes: Patient is a 41-year-old male who returns emergency department complaining of pain. Patient was diagnosed with myeomalacia of the C-spine on MRI that was done earlier in December. Patient states that he is following up with his primary care and neurosurgery that this week. Otherwise he denies any new symptoms. States he has been taking his steroids as prescribed. Otherwise denies any urinary incontinence incontinence, saddle anesthesia. Admits to numbness and tingling in his feet and fingers but otherwise denies any other new symptoms at this time denies any new trauma. TRAVEL OUTSIDE OF THE [place] IN LAST 30 DAYS: No - Related Data Allergies/Adverse Reactions: Sulfa (Sulfonamide Antibiotics) Allergy (Verified 01/19/17 00:35) Past Medical History - Social History Smoking Status: Current Every Day Smoker Family History: Reviewed & Not Pertinent Renal/ Medical History: Denies: Hx Peritoneal Dialysis Musculoskeltal Medical History: Reports Hx Musculoskeletal Deformity, Reports Hx Musculoskeletal Trauma Skin Medical History: Reports Hx MRSA Infectious Medical History: Reports: Hx MRSA Past Surgical History: Reports: Hx Orthopedic Surgery - cervical fusion x 4,, Hx Tonsillectomy - Immunizations Hx Diphtheria, Pertussis, Tetanus Vaccination: Yes Review of Systems - Review of Systems Constitutional: No symptoms reported Musculoskeletal: See HPI -: Yes All other systems reviewed and negative Physical Exam - Vital signs Vitals: Temp Pulse Resp BP Pulse Ox 98.4 F 73 18 149/93 H 99 01/19/17 00:37 01/19/17 00:37 01/19/17 00:37 01/19/17 00:37 01/19/17 00:37 - Notes Notes: PHYSICAL EXAM GENERAL: Alert, interacts well. HEAD: Normocephalic, atraumatic. EYES: Pupils equal, round, and reactive to light. Extraocular movements intact. ENT: Oral mucosa moist, tongue midline. NECK: Full range of motion. Supple. Trachea midline. Patient is in an [place] collar LUNGS: Clear to auscultation bilaterally, no wheezes, rales, or rhonchi. No respiratory distress. HEART: Regular rate and rhythm. No murmurs, gallops, or rubs. ABDOMEN: Soft, nondistended, nontender. No guarding, rebound, or rigidity.. Bowel sounds present in all 4 quadrants. EXTREMITIES: Moves all 4 extremities spontaneously. No edema, radial and dorsalis pedis pulses 2/4 bilaterally. No cyanosis. NEUROLOGICAL: Alert and oriented x4. Normal speech. GCS 15 PSYCH: Normal affect, normal mood. SKIN: Warm, dry, normal turgor. No rashes or lesions noted. Course - Re-evaluation Re-evalutation: 01/19/17 1:00 patient is a 41-year-old male is hemodynamic stable, no acute distress afebrile. The patient presents with cervical pain without signs of spinal cord compression, cauda equina syndrome, infection, aneurysm, or other serious etiology. The patient is neurologically intact. Given the extremely low risk of these diagnoses further testing and evaluation for these possibilities does not appear to be indicated at this time. The patient has been instructed to return if the symptoms worsen or change in any way. - Vital Signs Vital signs: Temp Pulse Resp BP Pulse Ox 98.4 F 73 18 149/93 H 99 01/19/17 00:37 01/19/17 00:37 01/19/17 00:37 01/19/17 00:37 01/19/17 00:37 - Diagnostic Test Radiology reviewed: Reports reviewed - MRI completed earlier in December. Discharge - Discharge Clinical Impression: Cervical pain (neck) Condition: Good Disposition: HOME, SELF-CARE Additional Instructions: Please follow up with your primary care on 01/23 Chronic Pain Control Stress, inactivity, and depression make pain more severe regardless of the cause of the pain. Stress and poor physical condition can cause pain such as headaches and backache. Relaxation: Rest in a quiet place with your eyes closed for 20 minutes twice daily. Concentrate on a pleasant image, or simply "feel" your breathing. Clear your mind. Stress management: Deal with your "stressors." Either take action, or eliminate the stressor from your life. Don't let things hang over you. Accept those things you can't change. Nutrition: Eat small, balanced meals -- don't skip, don't overeat. Meals should be high-carbohydrate, low-sugar, low-fat. Exercise: Exercise helps painful conditions and eases stress. Get 30 minutes of moderate exercise, five days a week. Do an activity that does not flare your pain. Precautions: Pain which continues to disrupt daily activities, or which changes in nature, requires a medical evaluation. Pain Clinic referral is available. We do not manage chronic pain in the Emergency Department. We will try to appropriately help you through an acute flare of your chronic painful condition , but for on-going chronic pain that does not improve, you will need to see your private doctor or pain medicine physician. We do not provide repeated medication management of chronic painful conditions. If you wish, we can provide the name of local pain management physicians. Prescriptions: Oxycodone HCl/Acetaminophen [Percocet 5-325 mg Tablet] 1 - 2 tab PO Q4H PRN #15 tablet PRN Reason:
[2017-01-19 02:10] VITALS: BP 149/93
== END 2017-01-19 02:09 | disposition home or self-care (01) ==
LOC: ER 00:29
DX: M54.2 Cervicalgia (principal); F17.200 Nicotine dependence, unspecified, uncomplicated; Z86.14 Personal history of Methicillin resistant Staphylococcus aureus infection; Z98.1 Arthrodesis status
CPT/HCPCS: 99283

== ENCOUNTER 2017-02-03 15:14 | Emergency (ER) | payer OTHER ==
[2017-02-03 15:40] VITALS: BP 149/97
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
== END 2017-02-03 17:57 | disposition left against medical advice (07) ==
LOC: ER 15:14
DX: M54.12 Radiculopathy, cervical region (principal); M54.2 Cervicalgia; R03.0 Elevated blood-pressure reading, without diagnosis of hypertension; G89.29 Other chronic pain; M79.602 Pain in left arm; R20.0 Anesthesia of skin; Z98.890 Other specified postprocedural states
CPT/HCPCS: 99281